=== PATIENT | female | born 1965 | race Caucasian/White ===

== ENCOUNTER → 2017-05-17 | Outpatient (CLI) | payer BC | LOC: LAB SHORT 18:03 | DX: N39.0 Urinary tract infection, site not specified (principal) | CPT/HCPCS: 87086 ==

== ENCOUNTER → 2017-07-11 | Outpatient (CLI) | payer BC | END | disposition home or self-care (01) | LOC: PLD → LAB SHORT | DX: D22.5 Melanocytic nevi of trunk (principal); D22.39 Melanocytic nevi of other parts of face; D22.4 Melanocytic nevi of scalp and neck | CPT/HCPCS: 88305 ==

== ENCOUNTER → 2017-12-22 | Outpatient (CLI) | payer BC | END | disposition home or self-care (01) | LOC: LAB SHORT 09:35 → LAB EV 09:35 | DX: R35.0 Frequency of micturition (principal) | CPT/HCPCS: 87086 ==

== ENCOUNTER → 2018-07-28 | Outpatient (CLI) | payer BC | END | disposition home or self-care (01) | LOC: LAB SHORT 11:00 → LAB EV 11:00 | DX: M54.40 Lumbago with sciatica, unspecified side (principal) | CPT/HCPCS: G0480 ==

== ENCOUNTER → 2019-04-30 | Outpatient (CLI) | payer OTHER ==
[2019-05-02 14:07] LABS: HPV 16 Negative (Negative); HPV 18 Negative (Negative); HPV OTHER HR TYPES Negative (Negative)
== END | disposition home or self-care (01) ==
LOC: LAB SHORT 17:36 → LAB 17:36
PROVIDERS: Nurse Practitioner Women's Health
DX: Z12.4 Encounter for screening for malignant neoplasm of cervix (principal); Z91.89 Other specified personal risk factors, not elsewhere classified
CPT/HCPCS: 87624; G0123

== ENCOUNTER → 2020-07-17 | Outpatient (CLI) | payer OTHER ==
[~2020-07-17] MED LIST: ALORA; AMBIEN10 MG; EUTHYROX125 MCG; PROG100; XANAX
== END | disposition home or self-care (01) ==
LOC: PLD 19:13 → LAB SHORT 19:13
DX: N39.0 Urinary tract infection, site not specified (principal)
CPT/HCPCS: 87086